=== PATIENT | male | born 1985 | race Caucasian/White ===

== ENCOUNTER 2022-09-20 08:55 | Inpatient (IN) | payer OTHER ==
[~2022-09-20] VITALS: Ht 190.5 cm; Wt 107.9 kg
[~2022-09-20 08:55] MED LIST: AZIT-12 PO
[2022-09-20] MEDS ORDERED: IBUP-1022 PO (10:11)
[2022-09-20] MEDS ORDERED: EMER1PAK6 PO (10:11)
[2022-09-20] MEDS ORDERED: ACET500P3 PO (10:11)
[2022-09-20] MEDS ORDERED: dexAMETHasone 20MG/5ML VIAL IV ONE (10:20)
[2022-09-20] MEDS ORDERED: PIPERACILLIN/TAZOBACTAM SOD 4.5 GM in D5W MINI-BAG PLUS 50 ML IV ONE (10:20)
[2022-09-20] MEDS ORDERED: NS 1,000 ML IV ONE (10:20)
[2022-09-20] MEDS: MORPHINE 2 MG/ML 1ML VIAL IV PRN ×4 (10:55→16:26)
[2022-09-20 11:07] LABS: BASO % 0.2 % (0.0-1.0); EOS % 0.2 % (0.0-3.0); HEMATOCRIT 43.6 % (42.0-52.0); HEMOGLOBIN 14.4 g/dl (13.5-17.5); LYMPH # 1.2 10^3/uL (1.5-5.0); LYMPH % 12.6 % (24.0-44.0); MEAN CORPUSCULAR HEMOGLOBIN 27.8 pg (27.0-33.0); MEAN CORPUSCULAR VOLUME 84.2 fl (80.0-96.0); MONO # 0.5 10^3/uL (0.0-0.8); MONO % 5.6 % (2.0-8.0); NEUTROPHILS # 7.8 10^3/uL (1.5-8.5); NEUTROPHILS % 81.1 % (36.0-66.0); PLATELET COUNT, AUTOMATED 251 10^3/uL (150-450); RED BLOOD COUNT 5.18 10^6/uL (4.30-6.10); WHITE BLOOD COUNT 9.6 10^3/uL (4.0-10.0)
[2022-09-20] MEDS ORDERED: ISOVUE-370 76% 100ML VIAL As Ordered ONE (11:07)
[2022-09-20 11:22] LABS: BLOOD UREA NITROGEN 12 MG/DL (9-23); CALCIUM LEVEL 9.3 MG/DL (8.5-10.1); CARBON DIOXIDE LEVEL 28 MMOL/L (20-31); CHLORIDE LEVEL 102 MMOL/L (98-107); CREATININE FOR GFR 0.89 MG/DL (0.70-1.30); GLOMERULAR FILTRATION RATE > 60.0 (>60); GLUCOSE, FASTING 93 MG/DL (60-100); POTASSIUM SERUM 4.7 MMOL/L (3.5-5.1); SODIUM LEVEL 138 MMOL/L (136-145)
[2022-09-20] MEDS ORDERED: MED REC IN PROGRESS XX SCH (12:30)
[2022-09-20] MEDS ORDERED: ACETAMINOPHEN TAB 650MG DOSE (2X325MG) PO PRN (13:00)
[2022-09-20] MEDS ORDERED: NS 1,000 ML IV SCH (13:00)
[2022-09-20] MEDS ORDERED: MORPHINE 2 MG/ML 1ML VIAL IV PRN (13:00)
[2022-09-20] MEDS ORDERED: ACET-683 PO (13:06)
[2022-09-20] MEDS ORDERED: HOME MED LIST COMPLETE! XX SCH (13:10)
[2022-09-20 14:06] LABS: INR 1.01; PROTHROMBIN TIME 13.5 SECONDS (12.5-14.5)
[2022-09-20 14:07] LABS: PARTIAL THROMBOPLASTIN TIME 31.4 SECONDS (24.8-34.2)
[2022-09-20] MEDS ORDERED: LIDOCAINE W/EPINEPHRINE 1% 20ML VIAL As Ordered ONE (14:17)
[2022-09-20] MEDS ORDERED: CLINDAMYCIN 900MG/6ML VIAL As Ordered ONE (14:17)
[2022-09-20 14:38] LABS: ERYTHROCYTE SEDIMENTATION RATE 49 mm/hr (0-15)
[2022-09-20] MEDS ORDERED: ROCURONIUM BROMIDE 50MG/5ML VIAL As Ordered ONE (15:33)
[2022-09-20] MEDS ORDERED: MIDAZOLAM INJ 2MG/2ML VIAL As Ordered ONE (15:33)
[2022-09-20] MEDS ORDERED: fentaNYL 100 MCG/2 ML INJECTION As Ordered ONE (15:33)
[2022-09-20] MEDS ORDERED: propofoL 200 MG/20 ML VIAL As Ordered ONE (15:33)
[2022-09-20] MEDS ORDERED: LIDOCAINE 2% 100MG/5ML SDV (FOR ANES.) As Ordered ONE (15:33)
[2022-09-20] MEDS ORDERED: ONDANSETRON 4MG 2ML VIAL As Ordered ONE (15:33)
[2022-09-20] MEDS ORDERED: SUGAMMADEX SODIUM 500 MG/5 ML VIAL (BRIDION) As Ordered ONE (15:42)
[2022-09-20] MEDS ORDERED: fentaNYL 100 MCG/2 ML INJECTION IV PRN (16:05)
[2022-09-20] MEDS ORDERED: ONDANSETRON 4MG 2ML VIAL IV PRN (16:05)
[2022-09-20] MEDS ORDERED: LR 1,000 ML IV SCH (16:05)
[2022-09-20] MEDS ORDERED: MORPHINE 2 MG/ML 1ML VIAL As Ordered ONE (16:06)
[2022-09-20] MEDS: AMPICILLIN SOD/SULBACTAM SOD 3 GM in D5W MINI-BAG PLUS 100 ML IV SCH ×2 (16:19→22:35)
[2022-09-20 16:42] VITALS: BP 128/80; TEMP 97.2; O2SAT 96
[2022-09-20 19:25] VITALS: BP 122/75; TEMP 97.4; O2SAT 97
[2022-09-21 00:19] VITALS: BP 117/75; TEMP 97.1; O2SAT 96
[2022-09-21 04:08] VITALS: BP 118/74; TEMP 97; O2SAT 95
[2022-09-21] MEDS: AMPICILLIN SOD/SULBACTAM SOD 3 GM in D5W MINI-BAG PLUS 100 ML IV SCH ×4 (05:59→22:42)
[2022-09-21 06:41] LABS: HEMATOCRIT 39.1 % (42.0-52.0); HEMOGLOBIN 13.2 g/dl (13.5-17.5); MEAN CORPUSCULAR HEMOGLOBIN 28.4 pg (27.0-33.0); MEAN CORPUSCULAR HGB CONC 33.8 g/dl (32.0-36.5); MEAN CORPUSCULAR VOLUME 84.1 fl (80.0-96.0); PLATELET COUNT, AUTOMATED 267 10^3/uL (150-450); RED BLOOD COUNT 4.65 10^6/uL (4.30-6.10)
[2022-09-21 07:01] LABS: ALBUMIN 3.3 G/DL (3.2-5.2); ALKALINE PHOSPHATASE 79 U/L (46-116); ALT/SGPT 12 U/L (7.0-40); AST/SGOT < 8 U/L (<34); BILIRUBIN,TOTAL 0.4 MG/DL (0.3-1.2); BLOOD UREA NITROGEN 11 MG/DL (9-23); CALCIUM LEVEL 9.2 MG/DL (8.5-10.1); CARBON DIOXIDE LEVEL 27 MMOL/L (20-31); CHLORIDE LEVEL 105 MMOL/L (98-107); CREATININE FOR GFR 0.76 MG/DL (0.70-1.30); GLOMERULAR FILTRATION RATE > 60.0 (>60); GLUCOSE, FASTING 141 MG/DL (60-100); POTASSIUM SERUM 4.3 MMOL/L (3.5-5.1); SODIUM LEVEL 138 MMOL/L (136-145); TOTAL PROTEIN 6.2 G/DL (5.7-8.2)
[2022-09-21 07:50] VITALS: BP 117/73; TEMP 97.6; O2SAT 96
[2022-09-21 14:47] VITALS: BP 142/87; TEMP 98.8
[2022-09-21 20:00] VITALS: BP 139/88; TEMP 98.2; O2SAT 95
[2022-09-22] MEDS: AMPICILLIN SOD/SULBACTAM SOD 3 GM in D5W MINI-BAG PLUS 100 ML IV SCH ×4 (05:39→22:32)
[2022-09-22 05:42] VITALS: BP 123/57; TEMP 98.2; O2SAT 97
[2022-09-22 07:30] LABS: HEMATOCRIT 39.5 % (42.0-52.0); HEMOGLOBIN 12.9 g/dl (13.5-17.5); MEAN CORPUSCULAR HEMOGLOBIN 28.2 pg (27.0-33.0); MEAN CORPUSCULAR HGB CONC 32.7 g/dl (32.0-36.5); MEAN CORPUSCULAR VOLUME 86.2 fl (80.0-96.0); PLATELET COUNT, AUTOMATED 290 10^3/uL (150-450); RED BLOOD COUNT 4.58 10^6/uL (4.30-6.10); WHITE BLOOD COUNT 20.1 10^3/uL (4.0-10.0)
[2022-09-22 08:22] LABS: ALBUMIN 3.3 G/DL (3.2-5.2); ALKALINE PHOSPHATASE 76 U/L (46-116); ALT/SGPT 13 U/L (7.0-40); AST/SGOT < 8 U/L (<34); BILIRUBIN,TOTAL 0.3 MG/DL (0.3-1.2); BLOOD UREA NITROGEN 14 MG/DL (9-23); CALCIUM LEVEL 9.9 MG/DL (8.5-10.1); CARBON DIOXIDE LEVEL 27 MMOL/L (20-31); CHLORIDE LEVEL 109 MMOL/L (98-107); CREATININE FOR GFR 0.72 MG/DL (0.70-1.30); GLOMERULAR FILTRATION RATE > 60.0 (>60); GLUCOSE, FASTING 135 MG/DL (60-100); POTASSIUM SERUM 4.9 MMOL/L (3.5-5.1); SODIUM LEVEL 141 MMOL/L (136-145); TOTAL PROTEIN 6.2 G/DL (5.7-8.2)
[2022-09-22 14:00] VITALS: BP 125/85; TEMP 98.1; O2SAT 98
[2022-09-22] MEDS: ENOXAPARIN 40MG/0.4ML SYRINGE (J1650 PER 10MG) SC SCH (14:31)
[2022-09-22 22:00] VITALS: BP 138/79; TEMP 98.2; O2SAT 98
[2022-09-23] MEDS: AMPICILLIN SOD/SULBACTAM SOD 3 GM in D5W MINI-BAG PLUS 100 ML IV SCH (05:14)
[2022-09-23 06:00] VITALS: BP 129/90; TEMP 97.9; O2SAT 99
[2022-09-23 06:40] LABS: BASO % 0.2 % (0.0-1.0); EOS % 0.1 % (0.0-3.0); HEMATOCRIT 37.5 % (42.0-52.0); HEMOGLOBIN 12.1 g/dl (13.5-17.5); LYMPH # 2.5 10^3/uL (1.5-5.0); LYMPH % 22.2 % (24.0-44.0); MEAN CORPUSCULAR HEMOGLOBIN 28.1 pg (27.0-33.0); MEAN CORPUSCULAR HGB CONC 32.3 g/dl (32.0-36.5); MONO # 0.8 10^3/uL (0.0-0.8); MONO % 6.8 % (2.0-8.0); NEUTROPHILS # 7.8 10^3/uL (1.5-8.5); NEUTROPHILS % 70.1 % (36.0-66.0); PLATELET COUNT, AUTOMATED 234 10^3/uL (150-450); RED BLOOD COUNT 4.31 10^6/uL (4.30-6.10); WHITE BLOOD COUNT 11.1 10^3/uL (4.0-10.0)
[2022-09-23 06:59] LABS: BLOOD UREA NITROGEN 11 MG/DL (9-23); CALCIUM LEVEL 9.2 MG/DL (8.5-10.1); CARBON DIOXIDE LEVEL 30 MMOL/L (20-31); CHLORIDE LEVEL 105 MMOL/L (98-107); CREATININE FOR GFR 0.88 MG/DL (0.70-1.30); GLOMERULAR FILTRATION RATE > 60.0 (>60); GLUCOSE, FASTING 91 MG/DL (60-100); POTASSIUM SERUM 4.2 MMOL/L (3.5-5.1); SODIUM LEVEL 141 MMOL/L (136-145)
[2022-09-23] MEDS: ENOXAPARIN 40MG/0.4ML SYRINGE (J1650 PER 10MG) SC SCH (07:56)
[2022-09-23] MEDS ORDERED: LEVO1TAB40 PO (09:49)
== END 2022-09-23 11:35 | disposition home or self-care (01) | DRG 145 ==
LOC: M ED 08:55 → M ED INP 08:56 → ENRESERV 13:18 → M PCU 16:35 → M MSPAV 09-21 14:37 → M MS5PR 09-21 14:39 → INTOOBSV 09-21 16:25 → OBSVTOIN 09-21 16:25
PROVIDERS: ADMIT Internal Medicine; ATTEND Internal Medicine
PROC: 0C9P0ZZ Drainage of Tonsils, Open Approach (ICD-10-PCS; principal; 2022-09-20 15:00)
DX: J36 Peritonsillar abscess (principal); B95.4 Other streptococcus as the cause of diseases classified elsewhere; Z79.2 Long term (current) use of antibiotics; Z20.822 Contact with and (suspected) exposure to COVID-19